=== PATIENT | female | born 1935 | race Caucasian/White ===

== ENCOUNTER 2023-02-18 13:00 | Outpatient (AMB) | payer OTHER, SELFPAY ==
--- NOTE | 2023-02-18 13:04 | MHC.OFFVIS ---
Intake Vital Signs 02/18/23 13:07 Height 5 ft Weight 143 lb BMI 27.9 BP 138/82 Blood Pressure Location Rt brachial Position Sitting Pulse 73 Pulse Source Pulse Oximeter Pulse Oximetry (%) 96 Oxygen Delivery Method Room Air Intake Visit Reasons: NPV-Gait - Confirmed Intake Note: Pt presents to the office today for a NPV for her gait. Pt states she doesn't feel balanced when she walks. She states she feels like she might fall when she walks. Patients daughter states that she noticed the off balance within the past 6 months. Allergies No Known Allergies Allergy (Verified 02/18/23 13:09) HPI HPI Comments History of Present Illness Details 87 y/o female patient presents with her daughter for new in-person visit for evaluation of gait problem. Pt's daughter reports that patient having bilateral lower extremities weakness and stiffness. Pt also has difficulty walking up and down stairs. She had a left knee replacement done 3 years ago and her gait gradually worsened. Pt had a physical therapy after the knee surgery. She uses cane, had near fall, but her daughter helped her and she did not fall. Pt also can have bilateral leg numbness sometimes. She has back pain occasionally. Pt reports urinary and fecal incontinence, but more fecal incontinence. Pt reports that she had brain CT and MRI done in September to r/o NPH and was told that age related changes, no NPH. Denies headache or confusion. No brain image available at this time. Pt's daughter reports that patient gets tired very easily, being tired all day and not physically active. Pt also had a lab sleep study done in December and was told that she had a severe degree of sleep apnea and referred to cover mat machine operator. [facility] Surgical History (Updated 02/18/23 @ 13:10 by Siomara Duong MA) History of cholecystectomy History of hysterectomy History of left knee replacement Hx of appendectomy Family History (Updated 02/18/23 @ 13:14 by Siomara Duong MA) Father Hypertension Breast cancer Thyroid cancer Mother No problems noted. Daughter COPD (chronic obstructive pulmonary disease) Daughter Breast cancer Social History (Updated 02/18/23 @ 13:12 by Siomara Duong MA) Household Members: Family Housing: House Alcohol intake: current Alcohol intake frequency: a few times a month Patient Tobacco Use Status: Never used Tobacco Current occupational status: retired Review of Systems ENT Reports Normal hearing present Neuro Reports Normal hearing present Physical Exam Vital Signs: Last Vital Signs Pulse 73 02/18/23 13:07 BP 138/82 02/18/23 13:07 Pulse Ox 96 02/18/23 13:07 Oxygen Delivery Method Room Air 02/18/23 13:07 BMI result Body Mass Index 27.9 Const General: cooperative and tired appearing Nutritional Appearance: overweight Orientation/consciousness: patient oriented x3 Limitations: ambulation with cane Neuro General: patient oriented x3 Cranial nerves: Yes Bilaterally intact EOM present, Yes Normal facial strength present, Yes Midline tongue present, Yes Symmetric palate elevation present, Yes Normal hearing present, Yes Ability to bilaterally rotate head present and Yes Ability to bilaterally elevate shoulders present (left shoulder strength weaker than right. ) Gait exam (Neuro): Antalgic gait present and Assisted gait required Motor exam (neuro): 5/5 motor strength present throughout (left upper extremity weaker than right. ) and Pronator motor function not present Deep tendon reflexes (DTR's): Right patellar reflex intensity grade: 2+ and Left patellar reflex intensity grade: 3+ Psych Appearance: grossly normal Mental Status: mental status grossly normal Speech and movement: Clear speech present Affect: normal affect Attitude: cooperative Assessment & Plan Assessment & Plan (1) Stiffness of both knees: Code(s): M25.661 - Stiffness of right knee, not elsewhere classified; M25.662 - Stiffness of left knee, not elsewhere classified (2) Gait difficulty: Code(s): R26.9 - Unspecified abnormalities of gait and mobility Plan Refer patient to home physical therapy for gait training and bilateral lower extremities strength. Continue to use walker when she walk. Requested brain MRI and CT result. Advised patient to follow up with cover mat machine operator for sleep apnea. Orders: [facility]errals [facility] Referral M25.661 - Stiffness of right knee, not elsewhere classified, M25.662 - Stiffness of left knee, not elsewhere classified, R26.9 - Unspecified abnormalities of gait and mobility Coding Level of Care Code New Pt Level 4 (52705) Diagnoses Stiffness of both knees M25.661; M25.662 Gait difficulty R26.9
[2023-02-18 13:07] VITALS: BP 138/82; PULSE 73; O2SAT 96; BMI 27.9
== END 2023-02-18 14:16 | disposition home or self-care (01) ==
PROVIDERS: Visit Provider Nurse Practitioner Family
DX: M25.661 Stiffness of right knee, not elsewhere classified (principal); M25.662 Stiffness of left knee, not elsewhere classified; R26.9 Unspecified abnormalities of gait and mobility
CPT/HCPCS: 99204

== ENCOUNTER → 2023-02-18 13:00 | Outpatient (BNVA) | payer OTHER, SELFPAY | PROVIDERS: Visit Provider Nurse Practitioner Family ==

== ENCOUNTER 2023-05-23 14:14 | Outpatient (AMB) | payer OTHER, SELFPAY ==
[2023-05-23 14:17] VITALS: BP 126/84; PULSE 77; O2SAT 97; BMI 28.1
--- NOTE | 2023-05-23 14:17 | A.OFFVIS_ITS ---
Intake Vital Signs 05/23/23 14:17 Height 5 ft Weight 144 lb BMI 28.1 BP 126/84 Blood Pressure Location Rt brachial Position Sitting Pulse 77 Pulse Source Pulse Oximeter Pulse Oximetry (%) 97 Oxygen Delivery Method Room Air Intake Visit Reasons: Follow up-Gait Intake Note: Pt presents to the office today for a follow up for gait. Allergies No Known Allergies Allergy (Verified 05/23/23 14:19) HPI HPI Comments History of Present Illness Details 87 y/o female patient presents with her daughter for new in-person visit for evaluation of gait problem. Pt's daughter reports that patient having bilateral lower extremities weakness and stiffness. Pt also has difficulty walking up and down stairs. She had a left knee replacement done 3 years ago and her gait gradually worsened. Pt had a physical therapy after the knee surgery. She can walk slowly, uses cane. She slipped over and fell, but no injury. Pt also can have bilateral leg numbness sometimes. She has back pain occasionally. Pt also had a lab sleep study done in December and was told that she had a severe degree of sleep apnea and referred to women's ministry director. Pt started CPAP two weeks ago. Pt's daughter reports that patient gets tired very easily, being tired all day and not physically active. [facility] Surgical History History of hysterectomy Hx of appendectomy History of cholecystectomy History of left knee replacement Family History Father Hypertension Breast cancer Thyroid cancer Mother No problems noted. Daughter COPD (chronic obstructive pulmonary disease) Daughter Breast cancer Social History Household Members: Family Housing: House Alcohol intake: current Alcohol intake frequency: a few times a month Patient Tobacco Use Status: Never used Tobacco Current occupational status: retired Review of Systems Const All systems reviewed & are unremarkable except as noted in HPI and below ENT Reports Normal hearing present Neuro Reports Normal hearing present Physical Exam Vital Signs: Last Vital Signs Pulse 77 05/23/23 14:17 BP 126/84 05/23/23 14:17 Pulse Ox 97 05/23/23 14:17 Oxygen Delivery Method Room Air 05/23/23 14:17 BMI result Body Mass Index 28.1 Const General: cooperative and tired appearing Nutritional Appearance: overweight Orientation/consciousness: patient oriented x3 Limitations: ambulation with cane Neuro General: patient oriented x3 Cranial nerves: Yes Bilaterally intact EOM present, Yes Normal facial strength present, Yes Midline tongue present, Yes Symmetric palate elevation present, Yes Normal hearing present, Yes Ability to bilaterally rotate head present and Yes Ability to bilaterally elevate shoulders present (left shoulder strength weaker than right. ) Gait exam (Neuro): Antalgic gait present and Assisted gait required Motor exam (neuro): 5/5 motor strength present throughout (left upper extremity weaker than right. ) and Pronator motor function not present Deep tendon reflexes (DTR's): Right patellar reflex intensity grade: 2+ and Left patellar reflex intensity grade: 3+ Psych Appearance: grossly normal Mental Status: mental status grossly normal Speech and movement: Clear speech present Affect: normal affect Attitude: cooperative Assessment & Plan Assessment & Plan (1) Stiffness of both knees: Code(s): M25.661 - Stiffness of right knee, not elsewhere classified; M25.662 - Stiffness of left knee, not elsewhere classified (2) Gait difficulty: Code(s): R26.9 - Unspecified abnormalities of gait and mobility Plan Refer patient to home physical therapy for gait training and bilateral lower extremities strength. Continue to use walker when she walk. Advised patient to follow up with women's ministry director for sleep apnea. Orders: Referrals [facility] Referral M25.661 - Stiffness of right knee, not elsewhere classified, M25.662 - Stiffness of left knee, not elsewhere classified, R26.9 - Unspecified abnormalities of gait and mobility Coding Level of Care Code Est Pt Level 3 (04702) Diagnoses Stiffness of both knees M25.661; M25.662 Gait difficulty R26.9
== END 2023-05-23 14:56 | disposition home or self-care (01) ==
PROVIDERS: PCP Internal Medicine; Visit Provider Nurse Practitioner Family
DX: M25.661 Stiffness of right knee, not elsewhere classified (principal); M25.662 Stiffness of left knee, not elsewhere classified; R26.9 Unspecified abnormalities of gait and mobility
CPT/HCPCS: 99213

== ENCOUNTER → 2023-05-23 14:14 | Outpatient (BNVA) | payer OTHER, SELFPAY | PROVIDERS: PCP Internal Medicine; Visit Provider Nurse Practitioner Family ==